=== PATIENT | male | born 1955 | race Caucasian/White ===

== ENCOUNTER 2016-12-12 00:30 | Emergency (ER) | payer MEDICARE ==
[~2016-12-12] VITALS: Ht 185.4 cm; Wt 129.4 kg
[2016-12-12 00:32] VITALS: BP 117/83
== END 2016-12-12 00:59 | disposition home or self-care (01) ==
LOC: ED 00:53
DX: L29.9 Pruritus, unspecified (principal)
CPT/HCPCS: 99283

== ENCOUNTER 2016-12-25 00:39 | Emergency (ER) | payer MEDICARE ==
[~2016-12-25] VITALS: Ht 185.4 cm; Wt 127.9 kg
[2016-12-25 00:39] VITALS: BP 133/79
== END 2016-12-25 01:40 | disposition home or self-care (01) ==
LOC: ED 01:25
DX: L25.9 Unspecified contact dermatitis, unspecified cause (principal)
CPT/HCPCS: 99283

== ENCOUNTER 2017-01-12 23:24 | Emergency (ER) | payer MEDICARE ==
[~2017-01-12] VITALS: Ht 182.9 cm; Wt 129.8 kg
[2017-01-12 23:26] VITALS: BP 93/53
[2017-01-13] MEDS ORDERED: ERYTHROMYCIN OPHTH 0.5%, 1GM OP ONE (01:00)
== END 2017-01-13 00:58 | disposition home or self-care (01) ==
LOC: ED 23:59
DX: H00.011 Hordeolum externum right upper eyelid (principal); Z72.89 Other problems related to lifestyle
CPT/HCPCS: 99283

== ENCOUNTER 2017-02-23 06:37 | Emergency (ER) | payer MEDICARE ==
[~2017-02-23] VITALS: Ht 185.4 cm; Wt 131.0 kg
[2017-02-23] MEDS ORDERED: CARBAMIDE PEROXIDE EAR DROPS 6.5%, 15ML EACH EAR ONE (07:00)
[2017-02-23] MEDS ORDERED: CARBAMIDE PEROXIDE EAR DROPS 6.5%, 15ML ONE (07:04)
[2017-02-23 08:28] VITALS: BP 109/55
== END 2017-02-23 09:54 | disposition home or self-care (01) ==
LOC: ED 09:00
DX: H61.23 Impacted cerumen, bilateral (principal)
CPT/HCPCS: 99282

== ENCOUNTER 2017-03-08 13:08 | Emergency (ER) | payer MEDICARE ==
[~2017-03-08] VITALS: Ht 185.4 cm; Wt 129.7 kg
[2017-03-08 14:49] VITALS: BP 138/79
== END 2017-03-08 14:53 | disposition home or self-care (01) ==
LOC: ED 13:50
DX: M72.2 Plantar fascial fibromatosis (principal); J45.909 Unspecified asthma, uncomplicated; F41.9 Anxiety disorder, unspecified; E66.9 Obesity, unspecified
CPT/HCPCS: 99283

== ENCOUNTER 2017-05-20 10:17 | Emergency (ER) | payer MEDICARE ==
[~2017-05-20] VITALS: Ht 182.9 cm; Wt 128.0 kg
[2017-05-20 10:19] VITALS: BP 128/80
[2017-05-20] MEDS ORDERED: PERMETHRIN CRM 5%, 60GM ONE (11:21)
[2017-05-20] MEDS ORDERED: PERMETHRIN CRM 5%, 60GM TP SCH (11:30)
== END 2017-05-20 11:46 | disposition home or self-care (01) ==
LOC: ED 11:40
DX: B86 Scabies (principal)
CPT/HCPCS: 99283

== ENCOUNTER 2017-10-14 23:10 | Emergency (ER) | payer MEDICARE ==
[~2017-10-14] VITALS: Ht 182.9 cm; Wt 136.8 kg
[2017-10-14 23:11] VITALS: BP 113/78
== END 2017-10-14 23:47 | disposition home or self-care (01) ==
LOC: ED 23:40
DX: K08.89 Other specified disorders of teeth and supporting structures (principal); E66.9 Obesity, unspecified
CPT/HCPCS: 99283

== ENCOUNTER 2017-12-17 20:58 | Emergency (ER) | payer MEDICARE, MEDICAID ==
[~2017-12-17] VITALS: Ht 182.9 cm; Wt 133.4 kg
[2017-12-17 20:59] VITALS: BP 106/75
== END 2017-12-17 21:45 | disposition home or self-care (01) ==
LOC: ED 21:39
DX: B35.3 Tinea pedis (principal)
CPT/HCPCS: 99281

== ENCOUNTER 2018-02-09 21:27 | Emergency (ER) | payer MEDICARE, MEDICAID ==
[~2018-02-09] VITALS: Ht 185.4 cm; Wt 131.0 kg
[2018-02-09 21:33] VITALS: BP 115/69
== END 2018-02-09 22:41 | disposition home or self-care (01) ==
LOC: ED 21:52
DX: S90.31XA Contusion of right foot, initial encounter (principal); J45.909 Unspecified asthma, uncomplicated; W50.0XXA Accidental hit or strike by another person, initial encounter; Y93.89 Activity, other specified; Y92.098 Other place in other non-institutional residence as the place of occurrence of the external cause; Y99.8 Other external cause status
CPT/HCPCS: 99284